=== PATIENT | male | born 1960 | race Caucasian/White ===

== ENCOUNTER 2018-07-01 15:29 | Day surgery (SDC) | payer OTHER ==
[2018-06-30 15:43] VITALS: BMI 35.9
--- NOTE | 2018-07-01 07:42 | OP ---
Operative Note - Note: Operative Date: 07/01/18 Pre-Operative Diagnosis: right quad tendon rupture Operation: right quad tendon repair Implants: qfix anchors x3 Post-Operative Diagnosis: Same as Pre-op Surgeon: Baljinder Delgadillo Anesthesiologist/MACHINE SILVER STRIPPER: Idania Brooks Anesthesia: General Operative Report Dictated: Yes
[2018-07-01] MEDS ORDERED: DEXAMETHASONE SOD PHOSPHATE/PF 10 MG/ML SDV ONE (17:25)
[2018-07-01] MEDS ORDERED: ROPIVACAINE HCL 0.5% 30ML VIAL ONE (17:25)
[2018-07-01] MEDS ORDERED: MIDAZOLAM HCL 2 MG/2 ML SINGLE DOSE VIAL ONE ×2 (17:42→19:09)
[2018-07-01] MEDS ORDERED: PROPOFOL 20 ML ONE ×3 (18:11→18:44)
[2018-07-01] MEDS ORDERED: ceFAZolin SODIUM 1 GM VIAL ONE (18:16)
[2018-07-01] MEDS ORDERED: BENZOIN/ALOE VERA/STORAX/TOLU 58 ML BOTTLE ONE (19:41)
[2018-07-01] MEDS ORDERED: BUPIVACAINE 0.75% IN DEXTROSE/PF 2ML AMPULE NR ONE (19:48)
[2018-07-01] MEDS ORDERED: ONDANSETRON 4 MG/2 ML VIAL IVPUSH PRN (20:21)
[2018-07-01] MEDS ORDERED: ACETAMINOPHEN 325 MG TABLET (FP) PO PRN (20:21)
[2018-07-01] MEDS ORDERED: LACTATED RINGERS SOLUTION 1,000 ML IV SCH (20:30)
--- NOTE | 2018-07-01 20:48 | OP ---
DATE OF OPERATION: 07/01/2018 PREOPERATIVE DIAGNOSIS: Left quadriceps tendon tear. POSTOPERATIVE DIAGNOSIS: Left quadriceps tendon tear. PROCEDURE: Left quadriceps tendon repair. SURGEON: Baljinder Delgaidllo MD ANESTHESIA: Spinal and region. CONDITION: Stable. COMPLICATIONS: None. IMPLANTS: [employer] Q-Fix anchors x3. INDICATIONS: This is a pleasant 58-year-old gentleman who suffered a fall and suffered a quadriceps tendon rupture. Treatment options including nonoperative versus operative management were reviewed. Operative risks were reviewed in detail including bleeding, infection, neurovascular injury, need for further surgery, postoperative pain and stiffness, rerupture or failure to heal. We discussed medical risks such as heart attack, stroke, DVT, PE, and . We reviewed that stiffness can be a major issue and requires extensive physical therapy and occasionally further surgeries. I reviewed the rehabilitation protocol with the patient including the use of casting and bracing. I addressed all of the patient's questions and concerns. He voiced understanding and elected to proceed. PROCEDURE: The patient was brought to the operating room after administration of a regional block in the preoperative holding area. Spinal anesthetic was administered. The left lower extremity was then prepped and draped in the usual sterile fashion. A preoperative dose of antibiotics was given and the usual timeout procedure was performed. Incision was now planned out in the midline over the quadriceps tendon. The limb was exsanguinated. The tourniquet was inflated to 250 mmHg. The incision was then carried down through the skin to the subcutaneous tissue. Blunt spreading used to expose the injury site and a large hematoma was evacuated. The quadriceps tendon was avulsed mostly off of the patella. A small amount was intrasubstance with a portion of the tendon, which appeared relatively healthy on the posterior aspect of the insertion. Utilizing electrocautery, as well as a bur, the soft tissue was first stripped and then the hardened bone over the edge was debrided down to bleeding bone. Utilizing finger dissection, the retinaculum was freed from the surrounding tissue. Retinacular tear was extended both medially and laterally. Number 1 Vicryl sutures were passed, but not tied at this point through the medial and lateral retinaculum to provide a repair. Attention was now turned back to the patella. Three drill holes were made and 3 Q-Fix anchors were inserted across the surface of the superior patella. Utilizing a free needle, these were then passed in both Jamey-Charan and whipstitch style along the rest of the quadriceps tendon. These were then tied down, securing the quadriceps tendon back down to the superior surface of the patella. The retinacular sutures were then tied as well. The wounds were copiously irrigated. Subcutaneous tissues were approximated using 2-0 Vicryl. The skin was closed using 3-0 Nylon. The tourniquet was let down after an hour and 15 minutes. The patient was transferred to the recovery room in stable condition. Robert BENJAMIN/[id number]
[2018-07-01] MEDS ORDERED: ONDANSETRON 4 MG/2 ML VIAL ONE (21:26)
[2018-07-01 22:40] VITALS: BP 140/85; PULSE 66; TEMP 98.4
== END 2018-07-01 23:30 | disposition home or self-care (01) ==
LOC: JASU-SURG 15:29 → J5S 21:45 → JASU-SURG 23:30
PROVIDERS: ATTEND Orthopaedic Surgery Sports Medicine
PROC: 0LQM0ZZ Repair Left Upper Leg Tendon, Open Approach (ICD-10-PCS; principal; 2018-07-01 17:00)
DX: S76.112A Strain of left quadriceps muscle, fascia and tendon, initial encounter (principal); X58.XXXA Exposure to other specified factors, initial encounter; Y93.9 Activity, unspecified; Y92.9 Unspecified place or not applicable; Y99.9 Unspecified external cause status
CPT/HCPCS: 94760